=== PATIENT | female | born 1975 | race Caucasian/White ===

== ENCOUNTER 2018-05-28 10:13 | Inpatient (IN) | payer BC ==
[~2018-05-28] VITALS: Ht 167.6 cm; Wt 105.0 kg
[2018-05-28] MEDS ORDERED: VANCOMYCIN 1GM/NS 250 ML 250 ML IV STA (10:39)
[2018-05-28] MEDS ORDERED: SODIUM CHLORIDE 0.9% 1000ML 1,000 ML IV STA (10:39)
[2018-05-28] MEDS ORDERED: TETANUS/DIPHTHERIA TOX ADULT 0.5 ML SYR IM ONE (11:00)
[2018-05-28] MEDS ORDERED: ONDANSETRON HCL INJ 2MG/ML 2ML 2 MG/ML VIAL IV PRN (11:15)
[2018-05-28] MEDS ORDERED: SODIUM CHLORIDE FLUSH 10 ML SYR INJ PRN (11:15)
--- NOTE | 2018-05-28 11:19 | Diagnostic Imaging Report ---
Exam: Left elbow 3 views History: Pain and swelling Comparison: None. Findings: No fracture or malalignment. Joint spaces preserved. No abnormal soft tissue calcification or soft tissue defect. Impression: No acute osseous abnormality Signed by: Dr. Arjun Allen M.D. on 05/28/2018 11:16 AM
[2018-05-28] MEDS ORDERED: CLINDAMYCIN PHOS 900MG/ 50ML 50 ML IV SCH (12:00)
[2018-05-28 12:01] LABS: BASOPHILS # (AUTO) 0.1 (0.0-0.1); BASOPHILS % 0.3 % (0.0-1.0); EOSINOPHILS % 0.1 % (0.0-6.0); HEMATOCRIT 43.9 % (34.2-44.1); HEMOGLOBIN 13.9 g/dL (12.0-16.0); LYMPHOCYTES # (AUTO) 1.4 (1.0-3.2); LYMPHOCYTES % 7.4 % (18.0-39.1); MEAN CORPUSCULAR HEMOGLOBIN 26.7 pg (28-32); MEAN CORPUSCULAR HGB CONC 31.7 g/dL (31-35); MEAN CORPUSCULAR VOLUME 84.4 fL (81-99); MONOCYTES # (AUTO) 1.1 (0.2-0.8); NEUTROPHILS # (AUTO) 15.7 (2.1-6.9); NEUTROPHILS % 85.3 % (38.7-80.0); PLATELET COUNT 239 x10e3/uL (140-360); RED CELL DISTRIBUTION WIDTH 12.8 % (11.7-14.4)
[2018-05-28] MEDS: KETOROLAC TROMETHAMINE 30 MG/ML VIAL IM PRN ×2 (12:13→21:15)
[2018-05-28 12:24] LABS: ALANINE AMINOTRANSFERASE 22 IU/L (0-55); ALBUMIN 3.6 g/dL (3.5-5.0); ALKALINE PHOSPHATASE 54 IU/L (40-150); ANION GAP 14.5 mmol/L (8-16); BLOOD UREA NITROGEN 7 mg/dL (7-26); BUN/CREATININE RATIO 10 (6-25); CALCIUM 9.3 mg/dL (8.4-10.2); CARBON DIOXIDE 22 mmol/L (22-29); CHLORIDE 103 mmol/L (98-107); CREATININE, SERUM 0.73 mg/dL (0.57-1.11); EST GLOMERULAR FILTRATION RATE > 60 ML/MIN (60-); GLUCOSE 101 mg/dL (74-118); POTASSIUM 3.5 mmol/L (3.5-5.1); SODIUM 136 mmol/L (136-145)
[2018-05-28] MEDS: VANCOMYCIN 1GM/NS 250 ML 250 ML IV SCH ×2 (12:45→21:05)
[2018-05-28] MEDS: SODIUM CHLORIDE 0.9% 1000ML 1,000 ML IV SCH ×2 (14:45→21:00)
[2018-05-28 15:07] LABS: BILIRUBIN,URINE NEGATIVE (NEGATIVE); CLARITY,URINE CLEAR (CLEAR); COLOR,URINE YELLOW (YELLOW); KETONES,URINE NEGATIVE (NEGATIVE); LEUKOCYTE ESTERASE ,URINE NEGATIVE (NEGATIVE); NITRITE,URINE NEGATIVE (NEGATIVE); PROTEIN,URINE DIPSTICK NEGATIVE (NEGATIVE); URINE UROBILINOGEN 0.2 mg/dL (0.2 - 1)
[2018-05-28 15:08] LABS: PREGNANCY TEST, URINE NEGATIVE (NEGATIVE)
[2018-05-28 15:13] LABS: AMPHETAMINES SCREEN,URINE NEGATIVE (NEGATIVE); BENZODIAZEPINES SCREEN,URINE NEGATIVE (NEGATIVE); PHENCYCLIDINE SCREEN,URINE NEGATIVE (NEGATIVE)
[2018-05-28 15:30] LABS: BACTERIA,URINE MANY /HPF; EPITHELIAL CELLS,URINE MANY /LPF; RBC,URINE 0-5 /HPF (0-5)
[2018-05-28] MEDS: HYDROCODONE/APAP 5MG-325MG TAB PO PRN (16:00)
--- NOTE | 2018-05-28 17:07 | NUR ---
RCD PT FROM ER BY WHEEL CHAIR PT IS ALERT AND ORIENTED VITALS CHECKED PT RESTING ON BED NO SIGNS OF ANY DISTRESS NOTED VITALS CHECKED ADMISSION ASSESSMENT DONE PT HAVE CELLULITIS AND ABSCESS ON LEFT UPPER ARM AND FOREARM STARTED ON 05/26 NO C/O PAIN IV PATENT INSTRUCTED PT REGARDING HOSPITAL POLICY AND ROUTINE BED LOW AND LOCKED CALL LIGHT IN REACH
[2018-05-28 17:26] VITALS: BP 122/70
[2018-05-28 17:36] VITALS: BP 122/70
[2018-05-28 17:41] VITALS: BP 122/70
[2018-05-28] MEDS: CLINDAMYCIN PHOS 900MG/ 50ML 50 ML IV SCH (18:45)
--- NOTE | 2018-05-28 19:18 | NUR ---
PT RESTING ON BED BED SIDE REPORT GIVEN TO ONCOMING NURSE
--- NOTE | 2018-05-28 19:29 | NUR ---
Patient received lying in bed. AAO x 3. Patient had no complaints of pain. No signs of respiratory distress. Fall precautions in place. Patient instructed to call for assistance when needed. Call light within reach.
[2018-05-28 20:34] VITALS: BP 137/78
[2018-05-29] VITALS (8 sets, daily range): BP systolic 113–163; BP diastolic 56–81
[2018-05-29] MEDS: KETOROLAC TROMETHAMINE 30 MG/ML VIAL IM PRN (00:38)
--- NOTE | 2018-05-29 02:18 | History and Physical ---
CHIEF COMPLAINT: This patient comes in with left upper extremity pain and swelling. HISTORY OF PRESENTING ILLNESS: Ms. Shwetha Boyd with no prior history, was initially but 3 days prior to admission, the patient started to have pain in the upper left extremity. She had some itching and swelling. The patient's tenderness and erythema around the elbow got worse. Did have some drainage from the site and the patient came in to the hospital, was admitted for cellulitis of the left upper extremity with abscess. PAST MEDICAL HISTORY: The patient's past medical history is noncontributory. PAST SURGICAL HISTORY: Elsie tooth removal, otherwise noncontributory. REVIEW OF SYSTEMS: Significant for chest pain. No shortness of breath. No nausea, vomiting, or diarrhea. No constipation. No rectal bleeding. No hematochezia. No hematemesis. Positive for erythema. Negative for diplopia and blurry vision. SOCIAL HISTORY: No ETOH. No IV drug abuse. ALLERGIES: THE PATIENT IS ALLERGIC TO PENICILLINS. PHYSICAL EXAMINATION: GENERAL: The patient is alert and oriented x3. VITAL SIGNS: Temperature is 97.9, afebrile, pulse of 119, blood pressure is 142/89. HEENT: Normocephalic, atraumatic. Pupils are reactive to light and accommodation. CVS: S1 and S2 are normal. Regular rate and rhythm. ABDOMEN: Nontender, nondistended. EXTREMITIES: Left upper extremity with abscess with induration on the creases. The patient's erythema is extending all the way to mid upper extremity and mid forearm. LAB[place]: [place] [address], hemoglobin of 13.9, hematocrit of 43.9, platelets 239. Lymphocytes . There was a left shift with neutrophil count of 85.3. Chemistry, sodium 136, potassium is 3.5, BUN is 7, creatinine 0.73. Rest of the chemistries are normal. Toxicology, all are negative, opiates, methadone, barbiturates, methamphetamines, cocaine, and cannabinoids. Urine showed many bacteria. IMAGING STUDIES: Elbow x-ray shows no acute osseous abnormalities. ASSESSMENT: A 42-year-old female with cellulitis of the left upper extremity. 1. The patient's wound will be cultured. 2. ID consult will be done. 3. Surgical consult will be done for possible incision and drainage. 4. We will continue the patient on vancomycin, which has been started and clindamycin, which has been started too. 5. Further recommendation and clinical course. We will continue to monitor the patient and also follow up with Microbiology and also with the consultants. Possibly, will need incision and drainage because of the indurated abscess. MD JORGE Jacobson/MODL /[id number]
[2018-05-29] MEDS: SODIUM CHLORIDE 0.9% 1000ML 1,000 ML IV SCH ×3 (03:05→22:24)
[2018-05-29 05:37] LABS: BASOPHILS # (AUTO) 0.1 (0.0-0.1); BASOPHILS % 0.4 % (0.0-1.0); EOSINOPHILS % 0.2 % (0.0-6.0); HEMATOCRIT 36.5 % (34.2-44.1); LYMPHOCYTES # (AUTO) 1.1 (1.0-3.2); LYMPHOCYTES % 7.9 % (18.0-39.1); MEAN CORPUSCULAR HEMOGLOBIN 27.6 pg (28-32); MEAN CORPUSCULAR HGB CONC 32.9 g/dL (31-35); MEAN CORPUSCULAR VOLUME 84.1 fL (81-99); MONOCYTES % 7.2 % (4.4-11.3); NEUTROPHILS # (AUTO) 11.6 (2.1-6.9); NEUTROPHILS % 83.4 % (38.7-80.0); PLATELET COUNT 196 x10e3/uL (140-360); RED BLOOD COUNT 4.34 x10e6/uL (3.6-5.1); RED CELL DISTRIBUTION WIDTH 12.9 % (11.7-14.4)
[2018-05-29 05:57] LABS: ALANINE AMINOTRANSFERASE 34 IU/L (0-55); ALBUMIN 2.9 g/dL (3.5-5.0); ALBUMIN/GLOBULIN RATIO 0.9 (0.8-2.0); ALKALINE PHOSPHATASE 58 IU/L (40-150); ANION GAP 11.3 mmol/L (8-16); BLOOD UREA NITROGEN 7 mg/dL (7-26); BUN/CREATININE RATIO 10 (6-25); CALCIUM 8.2 mg/dL (8.4-10.2); CARBON DIOXIDE 22 mmol/L (22-29); CHLORIDE 108 mmol/L (98-107); CREATININE, SERUM 0.67 mg/dL (0.57-1.11); EST GLOMERULAR FILTRATION RATE > 60 ML/MIN (60-); GLUCOSE 110 mg/dL (74-118); POTASSIUM 3.3 mmol/L (3.5-5.1); SODIUM 138 mmol/L (136-145)
[2018-05-29] MEDS: CLINDAMYCIN PHOS 900MG/ 50ML 50 ML IV SCH ×4 (06:29→18:00)
--- NOTE | 2018-05-29 07:05 | NUR ---
Received patient mid fowlers position, side rails upx2, call light within reach. AAOX4 to time, person, place, situation. Respirations even and unlabored. Denies pain at this time. Instructed to use call light for assistance.
[2018-05-29] MEDS ORDERED: IBUPROFEN400 MG PO (07:39)
[2018-05-29] MEDS ORDERED: PRILOSEC OTC20 MG PO (07:39)
[2018-05-29] MEDS: VANCOMYCIN 1GM/NS 250 ML 250 ML IV SCH ×2 (10:00→22:24)
--- NOTE | 2018-05-29 10:40 | NUR ---
Dr. Alexander aware of K3.3. Aware will be out of town. See orders.
[2018-05-29] MEDS ORDERED: POTASSIUM CHLORIDE 20 MEQ TAB CR PO STA (10:42)
[2018-05-29] MEDS ORDERED: KETOROLAC TROMETHAMINE 30 MG/ML VIAL IV PRN ×2 (10:45→11:30)
[2018-05-29] MEDS ORDERED: IBUPROFEN 400 MG TAB PO PRN (10:45)
[2018-05-29] MEDS: IBUPROFEN 400 MG TAB PO PRN ×2 (13:25→13:32)
--- NOTE | 2018-05-29 14:58 | Consultation ---
DATE OF CONSULTATION: May 29, 2018 CHIEF COMPLAINT: Left arm swelling and tenderness. HISTORY OF PRESENT ILLNESS: The patient is a 42-year-old female who was in good health until several days ago when she noted swelling in the left arm at the antecubital fossa. Patient suspected an insect bite. The area has grown more red, tender and swollen. No fever or chills. PAST MEDICAL HISTORY: Negative. No previous surgery. ALLERGIES: SHE HAS AN ALLERGIC REACTION TO PENICILLIN. SOCIAL HABITS: No history of smoking or alcohol abuse. REVIEW OF SYSTEMS: No chest pain, shortness of breath or cough. PHYSICAL EXAMINATION VITALS: Stable. Afebrile. GENERAL: Patient is awake alert and in moderate discomfort. HEENT: Sclera anicteric. NECK: Supple. LUNGS: Clear. HEART: Regular rate and rhythm. ABDOMEN: Soft and nontender. EXTREMITIES: Shows erythematous area of the left antecubital fossa with a small wound opening draining some purulent material with ascending cellulitis to the upper arm. There is limited range of mobility to the elbow from this process. White cell count is 13.8 and hemoglobin of 12. Creatinine is 0.6. X-rays show no abnormalities. ASSESSMENT: Left arm cellulitis/abscess. PLAN: Incision and drainage under anesthesia. Attendant risks discussed. Job#: [id number] VEGA
--- NOTE | 2018-05-29 15:57 | NUR ---
CASE MANAGEMENT ASSESSMENT Rivet Passer to bedside to discuss plan of care with patient/family. CM/SW role and care transitions discussed. Anticipated discharge plan discussed along with duration of care. CM/SW discussed patients right to make decisions in care. CM/SW work hours given. Patient lives: with Gian Admit/Transfer: thru ED Hospital/ER visits since last admit: none; went to urgent care on Sunday POA/Emergency contact: Gian Boyd [phone] Current/Previous Home Health: none PCP/Follow-up Care: Dr. Dailey; advised pt to follow up with a physician within 7 days of discharge Current/Previous DME: none Medications (referring to index hospitalization or the first time you were in the hospital) a. Were changes made in your medications when you were in the hospital [index hospitalization]? n/a b. Did you understand the changes? n/a c. Were you able to obtain your new medications right away? n/a d. Were you able to take your medications like the doctor wanted you to? n/a e. Did the hospital give you an accurate, easy to understand list of medications when you left? n/a Scale of 1-10 how comfortable does patient feel with disease management in outpatient settin Other Services: none Employment Status: employed at [employer] and a [employer] Areas of Concerns: cellulitis Referral Needs: none at this time; pt's at bedside states if wound care is needed, he can help his with that Education Needs: medical management IMM/HURST given and signed (if applicable): n/a Goal for discharge: home CM/SW left business card at the bedside with contact information. Name and number was also written on the patients whiteboard. Patient verbalized understanding of discussion. CM will follow-up with ongoing discharge and transition of care needs.
--- NOTE | 2018-05-29 19:09 | NUR ---
Report given to oncoming nurse of patient's status. No s/s of acute distress noted.
[2018-05-29] MEDS: HYDROCODONE/APAP 5MG-325MG TAB PO PRN (22:29)
--- NOTE | 2018-05-29 23:06 | Progress Note ---
DATE: 05/29/2018 SUBJECTIVE: The patient comes in with cellulitis of the left upper extremity, abscess also noted. The patient continues to be in pain. The patient has been getting vancomycin and clindamycin on a daily basis. The patient has a consult with Surgery for possible surgery tomorrow, incision and drainage. OBJECTIVE: VITAL SIGNS: Currently, the patient is afebrile. Temperature is 98.0, pulse is 95, blood pressure is 113/56, pulse oximetry of 95% on room air. HEENT: Normocephalic, atraumatic. Pupils are reactive to light and accommodation. CVS: S1 and S2 are normal. Regular rate and rhythm. ABDOMEN: Nontender and nondistended. EXTREMITIES: Left upper extremity, elbow area with abscess and induration with cellulitis extending onto the either sides. LABORATORY VALUES: From today, white count is down to 13.85, hemoglobin of 12, and hematocrit of 36.5. Chemistries, sodium 138, potassium is 3.3. Toxicology, all negative. Vancomycin trough is 6.1. MICROBIOLOGY: Gram stain is pending. Her blood cultures are pending. ASSESSMENT AND PLAN: Cellulitis and abscess of the left upper extremity. The plan is to consult Dr. Stubbs, who is scheduling her for surgery for incision and drainage tomorrow. Pain management and continue monitoring the patient. Further recommendations on a clinical course and also on microbiology results. MD MARY JacobsonJ/MODL /[id number]
[2018-05-30] VITALS (9 sets, daily range): BP systolic 132–160; BP diastolic 65–96
--- NOTE | 2018-05-30 02:52 | Consultation ---
DATE OF CONSULTATION: 05/29/2018 REASON FOR CONSULTATION: Cellulitis of the arm, abscess of the arm. HISTORY OF PRESENT ILLNESS: This patient who is a [id number] with history of obesity, comes in with redness and swelling of her left upper extremity. She does not recall a history of specific trauma or injury or insect bite, she does not know. The patient had this for more than 5 days, getting progressively worse. The patient finally came to the hospital. In the hospital, blood culture was obtained x1, so far is negative. Her white count on admission was 18.3, hemoglobin 13.9. Sodium 126, potassium 3.5, creatinine 0.73. Liver enzymes within normal limits. She was started on clindamycin and vancomycin. The patient had x-ray, which showed no acute abnormality. The patient has already been seen by Dr. Stubbs of Surgery. PHYSICAL EXAMINATION: GENERAL: She is currently alert and oriented, does not seem to be in acute distress. Obese. VITAL SIGNS: Stable. Afebrile. HEENT: NECK: Supple. CHEST: Clear. EXTREMITIES: The arm is quite red and swollen. IMPRESSION: Cellulitis of the arm, abscess of the arm. I agree with vancomycin. I will add cefepime. I agree with I and D. We will send for culture and sensitivity from intraoperative. We will dose the vancomycin according to her weight and kidney function. We will follow with you. MD SOY Mckee/LINDA /[id number]
[2018-05-30] MEDS: SODIUM CHLORIDE 0.9% 1000ML 1,000 ML IV SCH ×3 (03:05→20:54)
[2018-05-30] MEDS: CLINDAMYCIN PHOS 900MG/ 50ML 50 ML IV SCH ×2 (06:03)
--- NOTE | 2018-05-30 07:16 | NUR ---
Taken for procedure. No s/s of acute distress noted.
[2018-05-30] MEDS ORDERED: BACITRACIN 50,000 UNIT VIAL ONE (07:34)
--- NOTE | 2018-05-30 08:35 | NUR ---
Back from procedure. Dressing to left arm clean, dry, and intact. Will continue to monitor
[2018-05-30] MEDS: PANTOPRAZOLE SOD 40 MG TABEC PO SCH (09:00)
[2018-05-30] MEDS: VANCOMYCIN 1GM/NS 250 ML 250 ML IV SCH ×2 (09:00→21:54)
[2018-05-30] MEDS ORDERED: NON-FORMULARY MEDICATION (Omeprazole Magnesium (Prilosec Otc) 20 MG) PO SCH (09:00)
[2018-05-30] MEDS: IBUPROFEN 400 MG TAB PO PRN ×2 (09:01→18:08)
--- NOTE | 2018-05-30 10:12 | Progress Note ---
DATE: 05/30/2018 SUBJECTIVE: This patient is here for cellulitis of the upper extremity. The patient is scheduled for incision and drainage today. OBJECTIVE: VITAL SIGNS: Temperature is 96.5, pulse of 97, respiration of 18, blood pressure of 160/95. HEENT: Normocephalic, atraumatic. Pupils are reactive to light and accommodation. CVS: S1 and S2 are normal. Regular rate and rhythm. ABDOMEN: Nontender and nondistended. EXTREMITIES: Left upper extremity with cellulitis and abscess still present and greenish present. MICROBIOLOGY: No growth in blood culture and Gram stain. Preliminary finding shows no growth after 1 day. ASSESSMENT: Left elbow cellulitis. PLAN: Plan is to do an incision and drainage. Currently, the patient is on clindamycin and vancomycin, will continue the same, have I and D today. Further recommendation on clinical course. Will continue with pain management at this time. MD JORGE Jacobson/MATIL /[id number]
[2018-05-30] MEDS ORDERED: CEFEPIME HCL 1 GM VIAL IV SCH (11:30)
--- NOTE | 2018-05-30 12:18 | NUR ---
Patient has order for cefepime. aware of PCN allergy. Per "okay to give, just monitor closely"
[2018-05-30] MEDS: CEFEPIME 1GM/NS 0.9% 50 ML 50 ML IV SCH ×2 (12:35→20:54)
--- NOTE | 2018-05-30 13:32 | Operative Report ---
DATE OF PROCEDURE: May 30, 2018 PREOPERATIVE DIAGNOSIS: Left arm abscess. POSTOPERATIVE DIAGNOSIS: Left arm abscess. OPERATIVE PROCEDURE: Incision and drainage, left arm abscess. VOCAL TEACHER: None. ANESTHESIA: General. INDICATIONS: The patient is a 42-year-old female with a 1-week history of left arm swelling, redness and tenderness in the antecubital fossa area. Patient has consented for incision and drainage under anesthesia with all attendant risks discussed. PROCEDURE FINDINGS: Abscess in the antecubital fossa of the left arm. DESCRIPTION OF PROCEDURE: The patient was brought to the OR intubated. The left arm was prepped with Betadine and draped in a sterile fashion. A transverse incision was made just above the antecubital fossa extending into the abscess cavity. Purulent material was swabbed for culture and sensitivity. The cavity was then explored with digital exploration, breaking up all loculations. The infectious plane is in the subcutaneous tissue as well as in the plane above the fascia. These were explored thoroughly with digital manipulation and irrigation with saline until all purulent material was removed and the wound packed with iodoform gauze. Hemostasis achieved. Dressing applied. Patient tolerated the procedure well. She was extubated and transported to the recovery room. Estimated blood loss was 10 mL. Job#: [id number]
[2018-05-30] MEDS ORDERED: DEXAMETHASONE SOD PHOS INJ 4 MG/ML VIAL ONE (17:23)
[2018-05-30] MEDS ORDERED: SEVOFLURANE INHAL SOLN 250 ML PEN BTL ONE (17:23)
[2018-05-30] MEDS ORDERED: ONDANSETRON HCL INJ 2MG/ML 2ML 2 MG/ML VIAL ONE (17:23)
[2018-05-30] MEDS ORDERED: LIDOCAINE HCL 2% LOCAL INJ 5 ML SDV VIAL INJ ONE (17:23)
[2018-05-30] MEDS ORDERED: PROPOFOL IV EMULSION 10 MG/ML 20 ML VIAL ONE (17:23)
[2018-05-30] MEDS ORDERED: MIDAZOLAM HCL 2 MG/2 ML VIAL ONE (17:39)
[2018-05-30] MEDS ORDERED: FENTANYL CITRATE/PF 100MCG/2 ML INJ ONE (17:39)
--- NOTE | 2018-05-30 18:56 | NUR ---
Report given to oncoming nurse. Resting in bed. AAOX4 to time, person,place, situation. Respirations even and unlabored. at bedside
--- NOTE | 2018-05-30 19:20 | NUR ---
Patient received sitting up in bed. AAO x 4. Family at bedside. Patient had no complaints of pain. Respirations even and non-labored. Dressing to left elbow CDI. Fall precautions maintained. Call light within reach.
[2018-05-31] VITALS (7 sets, daily range): BP systolic 133–160; BP diastolic 73–86
[2018-05-31] MEDS: SODIUM CHLORIDE 0.9% 1000ML 1,000 ML IV SCH (03:05)
[2018-05-31 05:24] LABS: BASOPHILS % 0.3 % (0.0-1.0); EOSINOPHILS # (AUTO) 0.1 (0.0-0.4); EOSINOPHILS % 0.8 % (0.0-6.0); HEMATOCRIT 36.9 % (34.2-44.1); HEMOGLOBIN 11.8 g/dL (12.0-16.0); LYMPHOCYTES # (AUTO) 1.8 (1.0-3.2); LYMPHOCYTES % 18.9 % (18.0-39.1); MEAN CORPUSCULAR HEMOGLOBIN 27.4 pg (28-32); MEAN CORPUSCULAR VOLUME 85.6 fL (81-99); MONOCYTES # (AUTO) 0.7 (0.2-0.8); NEUTROPHILS # (AUTO) 6.9 (2.1-6.9); NEUTROPHILS % 71.8 % (38.7-80.0); PLATELET COUNT 233 x10e3/uL (140-360); RED BLOOD COUNT 4.31 x10e6/uL (3.6-5.1); RED CELL DISTRIBUTION WIDTH 12.8 % (11.7-14.4)
[2018-05-31] MEDS: HYDROCODONE/APAP 5MG-325MG TAB PO PRN ×2 (05:43→14:45)
[2018-05-31 05:57] LABS: ANION GAP 11.6 mmol/L (8-16); BLOOD UREA NITROGEN 8 mg/dL (7-26); BUN/CREATININE RATIO 13 (6-25); CALCIUM 8.7 mg/dL (8.4-10.2); CARBON DIOXIDE 21 mmol/L (22-29); CHLORIDE 109 mmol/L (98-107); CREATININE, SERUM 0.64 mg/dL (0.57-1.11); EST GLOMERULAR FILTRATION RATE > 60 ML/MIN (60-); GLUCOSE 99 mg/dL (74-118); POTASSIUM 3.6 mmol/L (3.5-5.1); SODIUM 138 mmol/L (136-145)
[2018-05-31] MEDS: VANCOMYCIN 1GM/NS 250 ML 250 ML IV SCH ×2 (09:12→21:55)
[2018-05-31] MEDS: PANTOPRAZOLE SOD 40 MG TABEC PO SCH (09:12)
[2018-05-31] MEDS: CEFEPIME 1GM/NS 0.9% 50 ML 50 ML IV SCH ×2 (09:12→22:00)
--- NOTE | 2018-05-31 10:32 | Progress Note ---
DATE: 05/31/2018 SUBJECTIVE: The patient is a 42-year-old female, who comes in with cellulitis of the left upper extremity. The patient is status post incision and drainage. Pain is controlled. The patient's erythema and swelling have come down. The patient is currently on cefepime and vancomycin followed by Infectious Disease and also by Surgery. OBJECTIVE: GENERAL: Alert and oriented x3. VITAL SIGNS: Temperature is 96.5. Afebrile. Blood pressure is 149/81, pulse oximetry is 99%. HEENT: Normocephalic, atraumatic. Pupils are reactive to light and accommodation. CVS: S1 and S2 normal. Regular rate and rhythm. ABDOMEN: Nontender and nondistended. EXTREMITIES: Left upper extremity with erythema, tenderness and also induration, which has come down status post surgery. LABORATORY VALUES: Today's white count is down to 9.67, hemoglobin is 11.8, hematocrit of 36.9. Left shift has gone. Sodium is 136, potassium 3.6, BUN 8, creatinine 0.64, calcium is 8.7. Toxicology, vancomycin trough was 6.1 on 05/29. ASSESSMENT: 1. A 42-year-old female with left elbow cellulitis and abscess status post incision and drainage. We will continue the patient on antibiotics. Waiting for culture and sensitivity of the wound. Initial wound cultures have been negative. 2. Elevated high blood pressure. We will continue to monitor the patient's blood pressure. 3. Pain, which is controlled. Further recommendations and clinical course, we will continue following the patient along with consultants. MD JORGE Jacobson/MODL /[id number]
[2018-05-31] MEDS: IBUPROFEN 400 MG TAB PO PRN (11:04)
--- NOTE | 2018-05-31 17:53 | Progress Note ---
DATE: 05/31/2018 SUBJECTIVE: Ms. Boyd is doing well, status post I and D. Her arm remains erythematous and remains edematous. Her cultures are still pending. Blood cultures, no growth. The wound is showing no cultures, the Gram stain showed wbc. Her white count did develop from 18.4 to 9.6. OBJECTIVE: GENERAL: She is currently alert and oriented, does not seem in acute distress. VITAL SIGNS: Stable. Currently afebrile. HEENT: Normocephalic. NECK: Supple. CHEST: Clear. EXTREMITIES: Arm, there is still some erythema and edema, but it is better. Still some minimal invasion of the abscess and cellulitis. The patient with obesity. IV antibiotic for a few more days; however, the patient is insisting to leave by Sunday because she has to go back to work. Discussed with the patient, discussed with attending. We will follow. MD SOY Mckee/LINDA /[id number]
--- NOTE | 2018-05-31 19:22 | NUR ---
Patient received sitting up in bed. AAO x 3. No acute distress noted. Dressing to left elbow reinforced. Call light within reach.
[2018-06-01] VITALS (7 sets, daily range): BP systolic 142–157; BP diastolic 73–86
[2018-06-01] MEDS: HYDROCODONE/APAP 5MG-325MG TAB PO PRN (03:32)
[2018-06-01] MEDS: PANTOPRAZOLE SOD 40 MG TABEC PO SCH (07:21)
[2018-06-01] MEDS: IBUPROFEN 400 MG TAB PO PRN ×2 (07:22→21:27)
[2018-06-01] MEDS: CEFEPIME 1GM/NS 0.9% 50 ML 50 ML IV SCH ×2 (08:10→20:50)
[2018-06-01] MEDS: VANCOMYCIN 1GM/NS 250 ML 250 ML IV SCH ×2 (08:30→21:25)
--- NOTE | 2018-06-01 13:27 | Progress Note ---
DATE: 06/01/2018 SUBJECTIVE: The patient is a 42-year-old female, comes in with cellulitis of the left upper extremities. The patient is currently afebrile. Pain in the left upper extremity and also in the fingers with edema. Can make a fist, but has difficulty at this time. MEDICATIONS: Include cefepime, hydrocodone, ibuprofen, ketorolac, pantoprazole, and vancomycin. OBJECTIVE: VITAL SIGNS: Afebrile at 98.3. The patient did not have a temperature last night. Blood pressure is 145/80, pulse of 99, and respirations of 18. HEENT: Normocephalic, atraumatic. Pupils are reactive to light and accommodation. CVS: S1 and S2 normal. Regular rate and rhythm. ABDOMEN: Nontender and nondistended. EXTREMITIES: No clubbing, no cyanosis, and no edema except in the left upper extremity. Left upper extremity with bandage, status post incision and drainage. Bandage looks clean. The patient has IV line and is currently on IV antibiotics. ASSESSMENT: 1. Left upper extremity cellulitis and abscess, status post incision and drainage. The patient is on vancomycin and cefepime. We will continue the same. 2. High blood pressure. The patient's blood pressure is trending down. The patient's fluid has been turned to KVO. 3. Microbiology values are still pending on wound culture. Initial wound culture has grown no growth in the last 72 hours. DISPOSITION: To keep the patient here until Sunday. Give her IV antibiotics. Wait for IV Gram stain to come back and possible discharge on Sunday or Sunday depending on culture results. The patient can go home on p.o. antibiotics if it is okay with ID. The patient resists IV antibiotic as an outpatient. Further recommendation per clinical course. We will follow along with the consultants and possible discharge again on Sunday or Sunday. MD JORGE Jacobson/LINDA /[id number]
[2018-06-02 01:30] VITALS: BP 143/77
[2018-06-02 06:03] VITALS: BP 148/85
--- NOTE | 2018-06-02 07:06 | NUR ---
received pt lying in bed with eyes open and TV on. Resp even and unlabored. denies pain. call light within reach.
[2018-06-02 07:46] VITALS: BP 155/75
[2018-06-02] MEDS: PANTOPRAZOLE SOD 40 MG TABEC PO SCH (08:08)
[2018-06-02] MEDS: CEFEPIME 1GM/NS 0.9% 50 ML 50 ML IV SCH (08:09)
[2018-06-02 08:22] VITALS: BP 155/75
[2018-06-02] MEDS: VANCOMYCIN 1GM/NS 250 ML 250 ML IV SCH (09:46)
[2018-06-02] MEDS ORDERED: DOXYCYCLINE HY100 MG PO (10:29)
[2018-06-02] MEDS ORDERED: CIPRO500 MG PO (10:30)
--- NOTE | 2018-06-02 11:18 | Progress Note ---
DATE: 06/02/2018 SUBJECTIVE: The patient is here for cellulitis of left upper extremity, has been followed by Dr. Stubbs, who did incision and drainage and also by Dr. Holman for ID consultation. The patient is currently afebrile. Complains of some swelling in the left upper extremity and otherwise asymptomatic, afebrile and pain is controlled. OBJECTIVE: VITAL SIGNS: Temperature is 96.7, pulse is 75, blood pressure is 148/85, pulse oximetry of 98%. HEENT: Normocephalic, atraumatic. Pupils are reactive to light and accommodation. CVS: S1, S2. Normal rate and rhythm. ABDOMEN: Nontender, nondistended. EXTREMITIES: No clubbing. No cyanosis. Positive for edema in the left upper extremity. Bandage in place. The patient's bandage had been removed yesterday. Wound has been repacked yesterday. LABORATORY VALUES: Chemistries and CBCs have been normal on the . MICROBIOLOGY: No growth in the last two days and also wound culture has no growth and blood culture has no growth. ASSESSMENT: 1. Cellulitis of the left upper extremity with abscess formation, status post incision and drainage. The wound has been repacked. 2. Patient's discharge planning and disposition depend on Dr. Holman at this time as the patient can go home on p.o. antibiotic, which she is favoring towards, can be discharged today. The patient is resistant to IV antibiotics, which have been offered to her and patient has resisted it so far. Further recommendations and clinical course: The patient also needs an outpatient wound care consult and continue to monitor the patient and the patient will be followed by also Dr. Stubbs and Dr. Holman as an outpatient. MD JORGE Jacobson/LINDA /[id number]
--- NOTE | 2018-06-02 12:00 | NUR ---
wound care instructions provided with demonstration and pt and able to repeat back instructions.
[2018-06-02 12:05] VITALS: BP 153/79
--- NOTE | 2018-06-02 13:22 | NUR ---
PIV removed with tip intact. 1+ nonpitting edema to left hand, patient instructed to keep elevated as much as possible. d/c instructions, RX and all personal belonigngs in hand at garret of d/c. pt escorted to exit where awaited in private auto.
== END 2018-06-02 13:22 | disposition home or self-care (01) | DRG 872 ==
LOC: ER 10:13 → ERHOLD 11:16 → MED/SURG2 17:07
PROVIDERS: ADMIT Family Medicine; ATTEND Family Medicine
PROC: 0J9H0ZX Drainage of Left Lower Arm Subcutaneous Tissue and Fascia, Open Approach, Diagnostic (ICD-10-PCS; principal; 2018-05-30 07:30)
DX: A41.9 Sepsis, unspecified organism (principal); L02.414 Cutaneous abscess of left upper limb; L03.114 Cellulitis of left upper limb; E66.9 Obesity, unspecified; Z68.37 Body mass index [BMI] 37.0-37.9, adult; Z88.0 Allergy status to penicillin; Z82.49 Family history of ischemic heart disease and other diseases of the circulatory system; K21.9 Gastro-esophageal reflux disease without esophagitis; R03.0 Elevated blood-pressure reading, without diagnosis of hypertension
CPT/HCPCS: 36415; 80048; 80053; 80202; 80307; 81001; 81025; 83605; 83735; 85025; 87040; 87071; 87075; 87205; 90471; 90714; 93005; 96361; 99285; J0692; J1100; J1885; J2001; J2250; J2405; J3370; J7030